=== PATIENT | female | born 1995 | race Caucasian/White ===

== ENCOUNTER 2017-07-11 10:31 | Day surgery (SDC) | payer BC, OTHER ==
[~2017-07-11] VITALS: Ht 152.4 cm; Wt 124.3 kg
--- NOTE | ~2017-07-11 | EKG ---
[address] [address] ELECTROCARDIOGRAM REPORT Name: HEDY ESCUDERO Room #: DEP 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
--- NOTE | ~2017-07-11 | O ---
[facility] [place] [address] OPERATIVE REPORT Name: HEDY ESCUDERO Room #: 412-P [facility]..#: [id number] Admission: 07/11/17 Attend Phys: Timothy Rodriguez MD, F Discharge: Date of : [birth year] Report #: [id number] THIS REPORT FOR: //name// CC: Timothy Azevedo MD DATE OF SERVICE: 07/11/2017 SURGEON: Cruzito Stewart M.D. TOLL GATE KEEPER: Timothy Rodriguez M.D. PREOPERATIVE DIAGNOSES: 1. Right upper quadrant abdominal pain with symptomatic cholelithiasis. 2. Obesity. POSTOPERATIVE DIAGNOSES: 1. Biliary colic with gallbladder cholesterolosis and chronic cholecystitis. 2. Obesity. PROCEDURE: Laparoscopic cholecystectomy with intraoperative cholangiogram. ANESTHESIA: General endotracheal anesthesia and local anesthetic. ESTIMATED BLOOD LOSS: 5 mL. SPECIMEN: Gallbladder. COMPLICATIONS: None appreciated. INDICATIONS FOR PROCEDURE: This is a 22-year-old obese female patient who has had difficulty with abdominal pain over the past couple of years, but more frequently and progressively over the past couple of weeks. She was seen in the [facility] Emergency Room where she underwent imaging studies showing cholelithiasis. She has normal liver function tests and a normal white blood cell count. She presents today for laparoscopic cholecystectomy with cholangiogram. OPERATIVE FINDINGS: Upon entrance into the abdominal cavity, the patient had a fatty liver. Her stomach, small bowel and colon in the surrounding area appeared otherwise normal. Her gallbladder appeared to be quite intrahepatic. The critical view consisting of the cystic artery, cystic duct, and lower edge of the gallbladder through which the liver was visible was seen prior to clipping the cystic duct for the cholangiogram. Cholangiogram showed flow of contrast into the duodenum with no filling defects. Three clips remained on [facility] [address] [place] [address] OPERATIVE REPORT Name: KENAHEDYBEN SILVA Room #: 412-P [facility].#: [id number] Admission: 07/11/17 Attend Phys: Timothy Rodriguez MD, F Discharge: Date of : [birth year] Report #: [id number] the cystic duct stump after division of the duct. The gallbladder was truly intrahepatic higher up on the liver bed. No other significant intraabdominal pathology was identified. At the conclusion of the operation, sponge, needle, and instrument counts were correct. The gallbladder was opened on the back table and gallbladder cholesterolosis was identified. No gallstones or cholesterol polyps were seen. DESCRIPTION OF PROCEDURE IN DETAIL: After the benefits and risks of the procedure were explained to the patient which include but are not limited to risks of bleeding, infection, injury to the biliary tree, injury to adjacent organs, risk of DVT, pulmonary embolus, postoperative pain and postoperative expectations informed consent was obtained. The patient was identified in the preoperative holding area. The patient was then given IV antibiotics as documented in the chart to comply with the SCIP protocol. The patient was taken to the operating room and was placed in the supine position. The patient was given IV sedation and was intubated without incident. A time-out was performed to correctly identify the patient and procedure. SCDs were placed on the patient's bilateral lower extremities. The patient's abdomen was then prepped and draped in the standard sterile fashion with ChloraPrep. Local anesthetic was infiltrated into the skin and subcutaneous tissue. A periumbilical incision was made with a #15 blade scalpel. The 11-mm Visiport was then placed intraperitoneally with the 10-mm 0-degree angled laparoscope. After confirmation of placement within the peritoneal cavity, the scope was changed to a 10-mm 30 degree angled laparoscope and pneumoperitoneum was achieved with insufflation of carbon dioxide. The patient was placed in the reverse Trendelenburg position, rotated to the patient's left. A subxiphoid 5 mm and right subcostal 5 mm ports times 2 were placed under direct visualization after local anesthetic was infiltrated into the skin and subcutaneous tissue and appropriately sized incisions were made. Operative findings are as noted above. The dome of the gallbladder was retracted in a cephalad direction. The gallbladder peritoneum was scored medially and laterally after takedown of the adhesions to the gallbladder. Dissection was carried out around the cystic artery and cystic duct to identify each structure as entering directly into the gallbladder. The critical view as described above was seen. A Hemoclip was then placed on the cystic duct at its junction with the gallbladder. A ductotomy was made and the cholangiocatheter was passed into the cystic duct. A clip was placed, contrast was then injected and cholangiogram findings are as noted above. The cholangiocatheter was then removed and the cystic duct was triply clipped distal to the ductotomy. The duct was divided at the ductotomy site with the ultrasonic dissector. The cystic artery was then divided with the ultrasonic dissector as well. The gallbladder was then dissected off the liver bed with the ultrasonic scalpel and after fully removing the gallbladder, it was placed in an Endopouch and then removed through the periumbilical port site. [address] [address] OPERATIVE REPORT Name: HEDY ESCUDERO Room #: 412-P [facility]#: [id number] Admission: 07/11/17 Attend Phys: Timothy Rodriguez MD, F Discharge: Date of : [birth year] Report #: [id number] The abdominal cavity was then reentered. Other operative findings are as noted above. The liver bed was made hemostatic with electrocautery. After ensuring final hemostasis and ensuring that the clips were secure, the periumbilical port site fascial opening was closed with a simple interrupted 0 PDS suture under direct visualization using the Ecinity laparoscopic fascial closure device. The ports were removed and the abdominal cavity was desufflated. The fascial suture was tied. Interrupted subcuticular 4-0 Monocryl sutures and Dermabond were used to close the skin. The patient tolerated the procedure well. The patient was awakened, extubated and taken to the recovery room in stable condition with no apparent intraoperative complications. <ELECTRONICALLY SIGNED> By: Cruzito Stewart MD, FACS 07/12/17 0841 [id number] 22 Cruzito Stewart MD, FACS /nt
--- NOTE | ~2017-07-11 | S ---
[facility] [place] [address] SURGICAL PATH RPT PROCEDURE Name: HEDY ESCUDERO Room #: DEP [facility] M.R.#: [id number] Admission: 07/11/17 Date of : [birth year] Discharge: 07/12/17 Report #: [id number] Path Case #: [id number] PATHOLOGY REPORT COLLECTION DATE: 07/11/2017 RECEIVED DATE: 07/14/2017 SUBMITTING PHYS: Dr. Cruzito Stewart OTHER PHYS: Dr. Timothy Azevedo SPECIMEN(S) RECEIVED: A.Gallbladder * * * * * * * * * * * * FINAL DIAGNOSIS: Gallbladder, cholecystectomy: - Chronic cholecystitis. - Hepatic parenchyma. PATHOLOGIST: Victoriano Bustillos M.D. REPORT ELECTRONICALLY SIGNED BY: Victoriano Bustillos M.D. DATE/TIME: 07/15/2017 10:06 * * * * * * * * * * * * GROSS PATHOLOGY: Received in formalin labeled "Hedy Escudero gallbladder," is a 5.5 x 4.2 x 0.9 cm, previously opened gallbladder with bluegreenish, wrinkled, serosal surfaces. Opening the gallbladder reveals dark green, grainy mucosa, rippled with yellow highlights, and an average wall thickness of 0.1 cm. Calculi are not present (upon filtration of the specimen container and contents) and no masses are noted grossly. Respiratory Support Technician sections from the body and fundus are submitted along with the proximal margin in cassette A1. (TSD; 07/14/2017) CLINICAL HISTORY: Pre-OP DX: Cholecystitis with cholelithiasis Post-OP DX: Same as pre-op; pending PATH INITIAL CPT CODE(S): A; 40001 Professional services performed by [facility] at [facility] [address], [place] [address] [facility] [address] [place] [address] SURGICAL PATH RPT PROCEDURE Name: HEDY ESCUDERO Room #: DEP [facility] Esther#: [id number] Admission: 07/11/17 Date of : [birth year] Discharge: 07/12/17 Report #: [id number] Path Case #: [id number] Technical services performed by [facility] at [address] [place] [address], [facility] [address] [place] [address]. [facility] [address] [place] [address] PHONE: [phone] DIRECTOR: Joce Villalobos M.D. * * * END OF REPORT * * *
[2017-07-11 11:44] LABS: HEMATOCRIT 39.2 % (37.0-47.0); HEMOGLOBIN 13.2 gm/dL (12.0-15.0); MCH 27.5 pg (26.0-34.0); MCHC 33.8 g/dL (28.0-37.0); MCV 81.3 fL (80.0-100.0); RBC 4.82 mil/uL (4.20-5.00); RDW 15.6 % (10.5-14.5); WBC 8.8 thou/uL (4.0-11.0)
[2017-07-11 11:51] LABS: CALCIUM 9.4 mg/dL (8.5-10.1); CREATININE 0.9 mg/dL (0.6-1.0); POTASSIUM 3.8 mmol/L (3.5-5.1)
[2017-07-11 19:37] VITALS: BP 121/71
[2017-07-11] MEDS ORDERED: CELEXA10 M1 PO (21:01)
[2017-07-11] MEDS ORDERED: LABETALOL HCL100 MG PO (21:03)
[2017-07-12 05:28] VITALS: BP 111/62
[2017-07-12 07:13] LABS: ABSOLUTE NEUTROPHILS 8.9 thou/uL (1.4-8.2); BASOPHILS 0.2 % (0.0-2.0); HEMOGLOBIN 11.9 gm/dL (12.0-15.0); LYMPHOCYTES 12.7 % (24.0-44.0); MANUAL DIFF NO; MCH 26.7 pg (26.0-34.0); MCV 81.1 fL (80.0-100.0); MONOCYTES 4.6 % (1.0-8.0); PLATELET COUNT 202 thou/uL (150-400); POLYS 82.5 % (36.0-66.0); RBC 4.44 mil/uL (4.20-5.00); RDW 15.4 % (10.5-14.5); WBC 10.8 thou/uL (4.0-11.0)
[2017-07-12 07:28] LABS: CREATININE 0.8 mg/dL (0.6-1.0); POTASSIUM 3.9 mmol/L (3.5-5.1)
[2017-07-12 08:50] VITALS: BP 109/60
[2017-07-12] MEDS ORDERED: TORADOL 10 MG T10 MG PO (11:53)
[2017-07-12] MEDS ORDERED: HYDROCODONE-AP1 EAC6 PO (11:53)
[2017-07-12] MEDS ORDERED: SENNA-S TABLET1 EACH PO (11:53)
[2017-07-12 12:27] VITALS: BP 109/60
== END 2017-07-12 13:39 | disposition home or self-care (01) ==
LOC: TBA 10:31 → OR 10:31 → TBA 10:32 → 4N 19:53 → OR 07-12 13:39
PROVIDERS: Surgery
DX: K80.44 Calculus of bile duct with chronic cholecystitis without obstruction (principal); E66.9 Obesity, unspecified; Z98.890 Other specified postprocedural states; I47.1 Supraventricular tachycardia
CPT/HCPCS: 50010; 50101; 50249; 50411; 50555; 50558; 50962; 51489; 51975; 52265; 52266; 53307; 54022; 54118; 55245; 55317; 56462; 56525; 56526; 62110; 62900; 70005

== ENCOUNTER 2017-07-18 19:55 | Emergency (ER) | payer BC, OTHER ==
[~2017-07-18] VITALS: Ht 165.1 cm; Wt 117.9 kg
[~2017-07-18 19:55] MED LIST: CELEXA10 M1 PO; HYDROCODONE-AP1 EAC6 PO; LABETALOL HCL100 MG PO; SENNA-S TABLET1 EACH PO; TORADOL 10 MG T10 MG PO
[2017-07-18 21:52] LABS: ABSOLUTE NEUTROPHILS 5.6 thou/uL (1.4-8.2); BASOPHILS 0.5 % (0.0-2.0); EOSINOPHILS 1.9 % (0.0-3.0); HEMATOCRIT 39.2 % (37.0-47.0); HEMOGLOBIN 13.1 gm/dL (12.0-15.0); LYMPHOCYTES 30.7 % (24.0-44.0); MCH 27.2 pg (26.0-34.0); MCHC 33.3 g/dL (28.0-37.0); MCV 81.5 fL (80.0-100.0); MONOCYTES 6.5 % (1.0-8.0); PLATELET COUNT 224 thou/uL (150-400); POLYS 60.4 % (36.0-66.0); RDW 15.7 % (10.5-14.5); WBC 9.4 thou/uL (4.0-11.0)
[2017-07-18 22:08] LABS: MANUAL DIFF NO
[2017-07-18 22:42] LABS: URINE BILIRUBIN NEGATIVE (Negative); URINE BLOOD NEGATIVE (Negative); URINE COLOR YELLOW; URINE GLUCOSE-RANDOM* NEGATIVE (Negative); URINE KETONES NEGATIVE (Negative); URINE NITRITE NEGATIVE (Negative); URINE PROTEIN (DIPSTICK) NEGATIVE (Negative); URINE UROBILINOGEN 0.2 E.U./dl (0.2-1.0)
[2017-07-18 22:54] LABS: SQUAMOUS >10 Many /LPF (0-3)
[2017-07-18 22:55] LABS: CASTS None Seen /LPF (None Seen); CRYSTALS None Seen /LPF (None Seen); URINE RBC 0-2 Rare /HPF (0-2); URINE WBC 6-15 Few /HPF (0-5)
[2017-07-18 23:52] LABS: CREATININE 0.8 mg/dL (0.6-1.0); POTASSIUM 3.6 mmol/L (3.5-5.1)
[2017-07-18 23:58] LABS: ALBUMIN 3.5 g/dL (3.4-5.0); TOTAL BILIRUBIN 0.3 mg/dL (<0.1-1.0)
[2017-07-19] MEDS ORDERED: HYDROCODONE-AP1 EAC6 PO (00:06)
[2017-07-19] MEDS ORDERED: KEFLEX500 MG PO (00:21)
== END 2017-07-19 00:41 | disposition home or self-care (01) ==
LOC: ER 19:55
PROVIDERS: Nurse Practitioner Family
DX: G89.18 Other acute postprocedural pain (principal); N39.0 Urinary tract infection, site not specified; F10.99 Alcohol use, unspecified with unspecified alcohol-induced disorder; Z90.49 Acquired absence of other specified parts of digestive tract

== ENCOUNTER 2018-09-06 17:36 | Inpatient (IN) | payer BC, OTHER ==
[~2018-09-06] VITALS: Ht 165.1 cm; Wt 120.7 kg
--- NOTE | ~2018-09-06 | HC ---
[facility] [place] [address] CONSULTATION Name: HEDY ESCUDERO Room #: 422-P ADM IN M.R.#: [id number] Admission: 09/06/18 Attend Phys: Robert Black MD Discharge: Date of : [birth year] Report #: [id number] THIS REPORT FOR: //name// CC: [facility] DATE OF SERVICE: 09/07/2018 HISTORY OF PRESENT ILLNESS: The patient is a 23-year-old female who was admitted from the Emergency Room with weakness of her legs. She had been in her usual state of health until 4 months ago when she had an epidural block for a delivery of her second child. She had been having some back pain throughout her . The child was large and she did have some sore back pain after the epidural, which only lasted for several days. She went home after 2 days and did not have any problems with her back until 08/01, when she noticed pain in her low back upon awakening. She states that she had difficulty either sitting or standing and she sought care at the Emergency Room at [facility]. X-rays were taken she said and she was not admitted. A family member had seen Dr. Cunningham, a neurosurgeon in [place] and an appointment was made to see him, but that is not until the near future. Three days ago, the patient had several falls with leg numbness. She says that while walking, her legs simply gave out and she could not feel her legs for a few minutes. At other time, she had shooting pains from the back down into both legs and feet and at other times, her feet were numb. She had loss of balance, but did not fall on several occasions. On Friday night, her right leg felt "just like it did with the epidural." She denies incomplete emptying with urination, but has had no incontinence of urine and she reports no incontinence of stool. The patient was treated for urinary tract infection in the last few weeks. The patient does take labetalol for supraventricular tachycardia since the age of 3. At age 4, she was thrown from her horse. She sustained a broken arm and a clavicular fracture in addition to a rib fracture, which apparently severed the lower lung. She was treated at [facility] initially for a removal of the severed section of the lung, but had to have further surgery to remove the entire right lung after several weeks. She has had no problems since then. She has developed a scoliosis and x-rays have shown that her heart has shifted. She has continued to take labetalol 100 mg b.i.d. and has had no irregularities of rhythm of the heart. The patient was seen in the Emergency Department. MRIs of the lumbosacral spine, thoracic spine and head were done, which showed no diagnostic abnormalities. Cervical MRI had not been done at this time. FAMILY HISTORY: Cervical stenosis in her mother as well as a sister. PAST MEDICAL HISTORY: Also, positive for cholecystitis. [address] [address] CONSULTATION Name: HEDY ESCUDERO Room #: 422-P [facility] IN M.R.#: [id number] Admission: 09/06/18 Attend Phys: Robert Black MD Discharge: Date of : [birth year] Report #: [id number] ALLERGIES: She has no known allergies. LABORATORY STUDIES: Show normal chemistries and hematology. Sed rate was 18 and MCV is 70.2 and a smear showed hypochromasia and anisocytosis. Sed rate was 18; however, her C-reactive protein was 12.9, normal being less than 9. MEDICATIONS: The patient did start taking naltrexone/bupropion or Contrave ER 8-90 mg tablets b.i.d. for weight control several months ago. 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 SOCIAL HISTORY: The patient is a never smoker. She does use alcohol occasionally. REVIEW OF SYSTEMS: A 10-point review of systems was reviewed and negative except for the above. PHYSICAL EXAMINATION: GENERAL APPEARANCE: The patient is overweight, lying in bed. Mother is at the bedside. She appears her stated age and is very pleasant and cooperative. VITAL SIGNS: As above. NECK: Supple. EXTREMITIES: No pedal edema is noted. NEUROLOGIC: She is alert and oriented with normal memory and speech. Cranial nerve testing reveals normal appearing pupils. Extraocular movements are full without nystagmus. Visual shaffer are full to confrontation. Facial sensation and mobility normal. Hearing was intact bilaterally. Tongue was normal. Shoulder shrug was normal. On motor testing, there was full power in the arms. In the legs, the patient had mild giveaway weakness proximally, intermittently. She was able to stand and could stand on her heels and stand on her toes. No atrophy or fasciculations were noted. On sensation testing, no definite sensory level was noted. She did have decreased appreciation to pin in a possible L4 distribution, but this was not consistent. Coordination testing was done well with [id number]. Reflexes are brisk in the arms and at the knees, 2+ at the ankle. The toes are downgoing. Gait: The patient could get out of bed without help and could stand on her heels and toes as above. IMPRESSION: Back pain since July, which I do not believe can be blamed on the epidural block. She has weakness in her legs. She does have brisk reflexes at the knees, which perhaps suggest an upper motor neuron or spinal cord [facility] [address] [place] [address] CONSULTATION Name: HEDY ESCUDERO Room #: 422-P ADM IN M.R.#: [id number] Admission: 09/06/18 Attend Phys: Robert Black MD Discharge: Date of : [birth year] Report #: [id number] problem. Cervical MRI scan is pending. The patient is also being worked up for possible thoracic aortic aneurysm, particularly with the distortion of her anatomy secondary to the pneumonectomy done in childhood. By: [id number] [id number] Mario Pete MD /nt
[~2018-09-06 17:36] MED LIST changes: +KEFLEX500 MG PO
[2018-09-06 17:43] VITALS: BP 142/73
[2018-09-06 19:19] LABS: ABSOLUTE NEUTROPHILS 9.8 thou/uL (1.4-8.2); BASOPHILS 0.6 % (0.0-2.0); EOSINOPHILS 0.1 % (0.0-3.0); HEMATOCRIT 37.2 % (37.0-47.0); HEMOGLOBIN 11.8 gm/dL (12.0-15.0); LYMPHOCYTES 14.2 % (24.0-44.0); MCH 22.4 pg (26.0-34.0); MCHC 31.9 g/dL (28.0-37.0); MCV 70.2 fL (80.0-100.0); MONOCYTES 5.1 % (1.0-8.0); PLATELET COUNT 280 thou/uL (150-400); RBC 5.29 mil/uL (4.20-5.00); WBC 12.3 thou/uL (4.0-11.0)
[2018-09-06 19:32] LABS: CALCIUM 9.9 mg/dL (8.5-10.1); POTASSIUM 3.8 mmol/L (3.5-5.1)
[2018-09-06 19:58] LABS: ANISOCYTOSIS 1+; HYPOCHROMASIA 1+
[2018-09-06 23:52] VITALS: BP 125/74
[2018-09-06 23:59] VITALS: BP 125/74
[2018-09-07] VITALS: BP 127/76
[2018-09-07 00:20] VITALS: BP 142/80
[2018-09-07] MEDS ORDERED: CONTRAVE ER 8-1 EACH PO (02:05)
[2018-09-07 04:13] VITALS: BP 112/64
[2018-09-07 08:00] VITALS: BP 118/78
[2018-09-07 16:30] VITALS: BP 11/73
[2018-09-07 20:30] VITALS: BP 130/80
[2018-09-08 09:10] VITALS: BP 113/74
[2018-09-08 09:47] LABS: HEMATOCRIT 35.5 % (37.0-47.0); HEMOGLOBIN 11.1 gm/dL (12.0-15.0); MCH 22.2 pg (26.0-34.0); MCHC 31.3 g/dL (28.0-37.0); MCV 70.9 fL (80.0-100.0); RBC 5.01 mil/uL (4.20-5.00); RDW 19.1 % (10.5-14.5); WBC 10.2 thou/uL (4.0-11.0)
[2018-09-08 10:04] LABS: % SATURATION 6 % (20-39); ALBUMIN 3.1 g/dL (3.4-5.0); CALCIUM 8.5 mg/dL (8.5-10.1); IRON 28 ug/dL (50-170); MAGNESIUM 1.9 mg/dL (1.8-2.4); POTASSIUM 3.3 mmol/L (3.5-5.1); TIBC 507 ug/dL (250-450); TOTAL BILIRUBIN 0.2 mg/dL (<0.1-1.0); TOTAL PROTEIN 7.5 g/dL (6.4-8.2)
[2018-09-08 10:28] LABS: FOLIC ACID 10.5 ng/mL (8.6-58.9)
[2018-09-08 19:30] VITALS: BP 114/67
[2018-09-09 03:56] VITALS: BP 117/60
[2018-09-09 04:33] LABS: HEMATOCRIT 33.6 % (37.0-47.0); HEMOGLOBIN 10.3 gm/dL (12.0-15.0); MCHC 30.8 g/dL (28.0-37.0); MCV 71.3 fL (80.0-100.0); RBC 4.71 mil/uL (4.20-5.00); RDW 18.8 % (10.5-14.5)
[2018-09-09 04:48] LABS: CALCIUM 8.5 mg/dL (8.5-10.1); CREATININE 0.9 mg/dL (0.6-1.0); MAGNESIUM 1.8 mg/dL (1.8-2.4); POTASSIUM 3.7 mmol/L (3.5-5.1)
[2018-09-09 09:20] VITALS: BP 114/74
[2018-09-09 10:01] VITALS: BP 114/74
[2018-09-09 14:28] VITALS: BP 114/74
[2018-09-09 16:20] VITALS: BP 114/74
== END 2018-09-09 15:56 | disposition home or self-care (01) | DRG 552 ==
LOC: ER 17:36 → 4E 23:23 → EROBS 23:23 → 4E 09-07 00:07
PROVIDERS: Internal Medicine; Student in an Organized Health Care Education/Training Program
DX: M51.26 Other intervertebral disc displacement, lumbar region (principal); M53.3 Sacrococcygeal disorders, not elsewhere classified; F41.9 Anxiety disorder, unspecified; F44.4 Conversion disorder with motor symptom or deficit; Z90.49 Acquired absence of other specified parts of digestive tract; Z79.899 Other long term (current) drug therapy
CPT/HCPCS: 10084